=== PATIENT | male | born 1960 | race Caucasian/White ===

== ENCOUNTER → 2020-07-26 | Outpatient (CLI) | payer OTHER ==
[~2020-07-26] MED LIST: HYDR-2759 PO
== END ==
LOC: LAB 09:42
PROVIDERS: ATTEND Surgery
DX: Z01.812 Encounter for preprocedural laboratory examination (principal); K40.90 Unilateral inguinal hernia, without obstruction or gangrene, not specified as recurrent; Z20.822 Contact with and (suspected) exposure to COVID-19
CPT/HCPCS: U0003

== ENCOUNTER 2020-07-30 06:12 | Day surgery (SDC) | payer OTHER ==
[~2020-07-30] VITALS: Ht 182.9 cm; Wt 71.0 kg
[~2020-07-30 06:12] MED LIST changes: +BACITRACIN 50,000 UNIT in IV NORMAL SALINE 500ML BAG 500 ML IRR ONE; -HYDR-2759 PO
[2020-07-30] MEDS ORDERED: BUPIVACAINE-EPI 0.5%-1:200000 MPF 30 ML VIAL. INJ ONE (07:00)
[2020-07-30] MEDS ORDERED: PROCHLORPERAZINE 10 MG/2 ML VIAL. IV PRN (07:00)
[2020-07-30] MEDS ORDERED: HYDROmorphone 2 MG/ML VIAL IV PRN (07:00)
[2020-07-30] MEDS ORDERED: fentaNYL PF VIAL 100 MCG/2 ML VIAL IV PRN ×2 (07:00)
[2020-07-30] MEDS ORDERED: MORPHINE SULFATE 2 MG/ML VIAL. IV PRN (07:00)
[2020-07-30] MEDS ORDERED: IV RINGERS,LACTATED 1000ML 1,000 ML IV SCH (07:00)
[2020-07-30] MEDS ORDERED: ONDANSETRON PF 4 MG/2 ML VIAL. IV PRN (07:00)
[2020-07-30] MEDS ORDERED: LIDOCAINE 1% PF 2 ML VIAL. ID PRN (07:00)
[2020-07-30] MEDS ORDERED: LIDOCAINE 2% PF 5 ML VIAL. ONE (07:11)
[2020-07-30] MEDS ORDERED: ONDANSETRON PF 4 MG/2 ML VIAL. ONE (07:11)
[2020-07-30] MEDS ORDERED: DEXAMETHASONE SOD PHOS 4 MG/ML VIAL ONE (07:11)
[2020-07-30] MEDS ORDERED: PROPOFOL 10 MG/ML (20ML) VIAL. IV ONE (07:11)
[2020-07-30] MEDS ORDERED: fentaNYL PF VIAL 100 MCG/2 ML VIAL ONE (07:12)
[2020-07-30] MEDS ORDERED: MIDAZOLAM HCL/PF 2 MG/2 ML VIAL. ONE (07:12)
[2020-07-30] MEDS ORDERED: PHENYLEPHRINE in 0.9% NACL PF 1 MG/10 ML SYRINGE. IV ONE (08:21)
[2020-07-30] MEDS ORDERED: KETOROLAC 30 MG/ML VIAL. ONE (08:35)
[2020-07-30] MEDS ORDERED: HYDROcodone/APAP 5/325MG 1 TAB TABLET PO ONE ×2 (09:00)
--- NOTE | 2020-07-30 09:10 | PDOC4 ---
Operative Note Operative Note Operative Note: Preoperative Diagnosis: Left inguinal hernia Postoperative Diagnosis: Same Procedure: Left inguinal hernia repair with mesh Surgeon: Junaid Tip Stretcher: Luz Elena WELLINGTON Anesthesia: General EBL: 10 mL Specimen: None Drains: None Complications: None Indication: The patient is a 60-year-old male who was referred with a left inguinal hernia. He was offered surgical repair. The risks of surgery were discussed which include bleeding, infection, recurrence, pain, anesthetic risk, potential need for additional surgery procedure. He understands and would like to proceed. Description: The patient was taken to the operating room and placed supine on the operating table. General anesthesia was performed. The left groin was shaved and prepped with ChloraPrep and draped in a standard surgical manner. An incision was made in the skin lines with a scalpel. Cautery dissection was carried down to the external oblique aponeurosis. The aponeurosis was opened down to the external ring. The contents of the inguinal canal were digitally mobilized and encircled with a Tk drain. The patient had a moderate sized indirect hernia sac. The hernia sac was mobilized from the surrounding cord structures which were preserved. The sac was freed down to its base and fully reduced. The defect was filled with a large Phasix mesh plug. The plug was sutured into position with 2-0 Vicryl. The entire inguinal floor was then reinforced with a keyhole Prolene mesh patch. The external bleak was closed over the mesh with 2-0 Vicryl. The subcutaneous tissue was approximated with 2- 0 Vicryl. The skin was closed with 4-0 Monocryl. The incision was infiltrated with half percent Marcaine with epinephrine. A sterile dressing was then applied. The patient tolerated the procedure well and was sent to the recovery room in stable condition. At the end of the case all counts were correct. VOLODYMYR SAXENA MD Jul 30, 2020 09:10
--- NOTE | 2020-07-30 09:12 | DISCH ---
DISCHARGE INSTRUCTIONS Condition on Discharge Condition on Discharge: Stable Activity After Discharge Activity Instructions for Disc: Other, see below (no lifting over 20 lbs, s trenuous activity X 4 weeks) Diet after Discharge Diet after Discharge: Regular Wound Incision Care Wound/Incision Care: Other, see below (keep dressing clean and dry X 72 hours, may then remove and shower) Follow-Up Follow up with: Dr Saxena in 2 weeks in office, call for appointment [phone] VOLODYMYR SAXENA MD Jul 30, 2020 09:12
[2020-07-30 09:15] VITALS: BP 133/90
[2020-07-30] MEDS ORDERED: HYDR-2759 PO (09:19)
== END 2020-07-30 10:07 | disposition home or self-care (01) ==
LOC: SURG 06:12 → EDUNIT# 07:30 → SURG 10:07
PROVIDERS: ATTEND Surgery
DX: K40.90 Unilateral inguinal hernia, without obstruction or gangrene, not specified as recurrent (principal); Z79.899 Other long term (current) drug therapy; Z98.890 Other specified postprocedural states; Z72.89 Other problems related to lifestyle
CPT/HCPCS: 49505; C1781; J0690; J1100; J1885; J2250; J2370; J2405; J2704; J3010; J7040; J7120